=== PATIENT | female | born 1930 | race Caucasian/White ===

== ENCOUNTER → 2017-02-27 | Outpatient (CLI) | payer OTHER, MEDICARE ==
[~2017-02-27] MED LIST: ATOR-24 PO; GABA-113 PO; LEVO50TA6 PO; PANT40TA PO; TRAM-10 PO; WARF4TAB8 PO
[2017-02-27 17:35] LABS: BASO % 0.8 %; BASO ABS # 0.06 K/uL (0-0.2); COMPLETE YES; EOS % 2.1 %; HEMATOCRIT 38.7 % (37-47); IG% 0.1 %; LYMPH % 31.1 %; LYMPH ABS # 2.26 K/uL (1.2-3.4); MEAN CELL VOLUME 93.7 fL (80-100); MEAN CORPUSCULAR HEMOGLOBIN 29.8 pg (25-34); MEAN CORPUSCULAR HGB CONC 31.8 g/dl (32-36); MEAN PLATELET VOLUME 9.7 fL (7.4-10.4); MONO % 9.4 %; NEUT % 56.5 %; PLATELET COUNT 279 K/uL (130-400); RED BLOOD COUNT 4.13 M/uL (4.2-5.4); WHITE BLOOD COUNT 7.27 K/uL (4.8-10.8)
[2017-02-27 17:45] LABS: ALT/SGPT 21 U/L (12-78); AST/SGOT 24 U/L (15-37); BLOOD UREA NITROGEN 12 mg/dl (7-18); BUN/CREATININE RATIO 15.9 (10-20); CALCIUM 9.1 mg/dl (8.5-10.1); CARBON DIOXIDE 29 mmol/L (21-32); CHLORIDE 104 mmol/L (98-107); CHOLESTEROL 237 mg/dl (0-200); CREATININE 0.76 mg/dl (0.60-1.20); GLUCOSE 87 mg/dl (70-99); POTASSIUM 4.1 mmol/L (3.5-5.1); SODIUM 140 mmol/L (136-145)
[2017-02-27 18:02] LABS: ALB/GLOB RATIO 0.9 (0.9-2); ALKALINE PHOSPHATASE 101 U/L (45-117); CHOLESTEROL/HDL RATIO 4.5; HDL CHOLESTEROL 53 mg/dl; LDL CHOLESTEROL CALCULATED 162 mg/dl; TRIGLYCERIDES 111 mg/dl (0-150); VERY LOW DENSITY LIPOPROT CALC 22 mg/dl
== END | disposition home or self-care (01) ==
LOC: C.LABPBG 12:42
PROVIDERS: ATTEND Neuromusculoskeletal Medicine & OMM
DX: Z00.00 Encounter for general adult medical examination without abnormal findings (principal); E03.9 Hypothyroidism, unspecified; I10 Essential (primary) hypertension

== ENCOUNTER 2017-10-19 00:35 | Inpatient (IN) | payer OTHER, MEDICARE ==
[2017-10-19] VITALS (8 sets, daily range): BP systolic 157–166; BP diastolic 69–89; PULSE 75–108; TEMP 35.7–37.1; O2SAT 95–100; Ht 162.6 cm; Wt 54.8 kg
[~2017-10-19] VITALS: Ht 162.6 cm; Wt 54.8 kg
[2017-10-19] MEDS ORDERED: MULT-506 PO (01:34)
[2017-10-19] MEDS ORDERED: COCO1CAP PO (01:35)
[2017-10-19] MEDS ORDERED: OMEG10007 PO (01:36)
[2017-10-19] MEDS ORDERED: GLUCTAB4 PO (01:37)
[2017-10-19] MEDS ORDERED: [UNRECOGNIZED DRUG - CODE] PO (01:39)
[2017-10-19] MEDS ORDERED: CHOL1CAP57 PO (01:41)
[2017-10-19] MEDS ORDERED: ONDANSETRON INJ 2 MG/ML 2 ML VIAL IV STA (02:13)
[2017-10-19 02:14] LABS: BASO % 0.2 %; BASO ABS # 0.03 K/uL (0-0.2); EOS % 0.7 %; EOS ABS # 0.08 K/uL (0-0.5); HEMATOCRIT 37.8 % (37-47); HEMOGLOBIN 12.7 g/dL (12.0-16.0); IG# 0.03 K/uL (0.00-0.02); LYMPH % 10.7 %; LYMPH ABS # 1.29 K/uL (1.2-3.4); MEAN CELL VOLUME 89.4 fL (80-100); MEAN CORPUSCULAR HGB CONC 33.6 g/dl (32-36); MEAN PLATELET VOLUME 8.9 fL (7.4-10.4); MONO % 5.8 %; NEUT % 82.4 %; NEUT ABS # 9.92 K/uL (1.4-6.5); PLATELET COUNT 296 K/uL (130-400); RED CELL DISTRIBUTION WIDTH CV 13.9 % (11.5-14.5); RED CELL DISTRIBUTION WIDTH SD 45.5 fL (36.4-46.3); WHITE BLOOD COUNT 12.05 K/uL (4.8-10.8)
[2017-10-19] MEDS ORDERED: IMIPENEM/CILASTATIN IV 500 MG in DEXTROSE 5% 100ML 100 ML IV STA (02:20)
[2017-10-19] MEDS ORDERED: DAPTOmycin IV 400 MG in SODIUM CHLORIDE 0.9% 50ML 50 ML IV STA (02:20)
[2017-10-19 02:30] LABS: PTT PATIENT 24.3 SECONDS (21.0-31.0)
[2017-10-19 02:34] LABS: ALBUMIN 3.4 gm/dl (3.4-5.0); ALT/SGPT 23 U/L (12-78); AST/SGOT 27 U/L (15-37); BLOOD UREA NITROGEN 16 mg/dl (7-18); CALCIUM 8.5 mg/dl (8.5-10.1); CARBON DIOXIDE 23 mmol/L (21-32); GLUCOSE 169 mg/dl (70-99); POTASSIUM 3.6 mmol/L (3.5-5.1); SODIUM 139 mmol/L (136-145)
[2017-10-19 02:38] LABS: ALKALINE PHOSPHATASE 92 U/L (45-117); TOTAL PROTEIN 7.6 gm/dl (6.4-8.2)
[2017-10-19] MEDS ORDERED: SODIUM CHLORIDE 0.9% 1000ML 1,000 ML IV STA (02:47)
[2017-10-19] MEDS ORDERED: PIPERACILL/TAZOBAC CONSULT ACTIVE PRN (03:30)
[2017-10-19] MEDS ORDERED: VANCOMYCIN CONSULT ACTIVE PRN (03:30)
[2017-10-19] MEDS ORDERED: ACETAMINOPHEN 325 MG TAB PO PRN (03:30)
[2017-10-19] MEDS ORDERED: ONDANSETRON INJ 2 MG/ML 2 ML VIAL IV PRN (03:30)
[2017-10-19] MEDS ORDERED: PATIENT'S HEIGHT AND/OR WEIGHT NEEDED STA (03:58)
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
[2017-10-19] MEDS ORDERED: PIPERACILL/TAZOBAC IV 3.375 GM in DEXTROSE 5% 100ML 100 ML IV ONE (05:00)
[2017-10-19] MEDS ORDERED: VANCOMYCIN IV 1,250 MG in SODIUM CHLORIDE 0.9% 250ML 250 ML IV SCH (05:00)
[2017-10-19] MEDS: SODIUM CHLORIDE 0.9% 1000ML 1,000 ML IV SCH ×2 (05:21→15:06)
[2017-10-19] MEDS: LEVOTHYROXINE 50 MCG TAB PO SCH (06:00)
[2017-10-19] MEDS ORDERED: HALOPERIDOL LACTATE 5 MG/ML 1 ML VIAL IV STA (06:14)
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
[2017-10-19] MEDS: PANTOprazole SOD 40 MG TAB PO SCH (08:00)
[2017-10-19] MEDS: ASPIRIN 81 MG ECTAB PO SCH (08:00)
[2017-10-19] MEDS: GABAPENTIN 300 MG CAP PO SCH (08:00)
[2017-10-19] MEDS: ENOXAPARIN 40 MG/0.4 ML SYR SC SCH (08:01)
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
[2017-10-19] MEDS: PIPERACILL/TAZOBAC IV 3.375 GM in DEXTROSE 5% 100ML 100 ML IV SCH ×2 (11:31→18:06)
[2017-10-19] MEDS ORDERED: HydrALAZINE HCL 20 MG/ML VIAL IV. PRN (13:30)
--- NOTE | 2017-10-19 14:13 | Pharmacy Progress Note ---
Pharmacy Abx Dose Short Note Date of Service October 19, 2017. Assessment & Plan Assessment * 87 year old female admitted for NVD, hypoxia, lethargy and hypothermia; concern for sepsis - source uncertain, GI? * 48 hours of empiric VANCOMYCIN + ZOSYN IV have been ordered by provider * Blood cx's ordered; UA unremarkable for infxn * CXR: no acute process per read * Procalcitonin ordered, results pending * Currently sat well on room air, hypothermia resolving, no tachycardia or hypotension noted Plan Vancomycin * eCrCl ~35-40cc/min * Loading dose of 1250mg (~22mg/kg) given this AM at 0526 * Estimated half-life ~20 hours * Maintenance dose: 750mg (13.2mg/kg) IV Q 24 hours * Goal trough: 15-20mcg/mL for sepsis * If therapy extends beyond 48 hours would recommend checking trough level w/ 2nd or 3rd maint dose as accurate calculation of p'kinetic parameters in this age group can be difficult Zosyn: * eCrCl > 20cc/min; BMI < 35; continue 3.375gm ext-infusion Q 8 hours Pharmacy will continue to follow and will adjust dose/frequency as necessary. Thank you.
[2017-10-19] MEDS ORDERED: OLANZAPINE ZYDIS 5 MG ORALLY DIS. TAB PO PRN (14:45)
--- NOTE | 2017-10-19 14:46 | Progress Note ---
Subjective Date of Service: October 19, 2017. Subjective Pt evaluation today including: conversation w/ patient, conversation w/ family , physical exam, chart review, lab review, review of studies, conversation w/ operational risk consultant, review of inpatient medication list Voiding: no voiding problems Nurse reports patient is agitated mild confused, 1 2 out of bed, and try to remove the IV access, When I see her she was anxious, but conversational, only know her name not first day not place, not daughter's name Problem List Medical Problems: (1) Atrial fibrillation and flutter Status: Acute (2) Hyponatremia Status: Acute (3) Hypoxia Status: Acute (4) Sciatica associated with disorder of lumbar spine Status: Acute (5) SIRS (systemic inflammatory response syndrome) Status: Acute (6) Warfarin-induced coagulopathy Status: Acute Review of Systems Constitutional: + weakness, + fatigue, + problem reported (Is limited because patient showing mild dementia), No fever, No chills, No sweats, No weight loss Eyes: No worsening of vision, No eye pain, No redness, No discharge, No diplopia ENT: No hearing loss, No unusual epistaxis, No nasal symptoms, No sore throat, No tinnitus, No dental problems, No trouble swallowing Respiratory: No cough, No sputum, No wheezing, No shortness of breath, No dyspnea on exertion, No dyspnea at rest, No hemoptysis Cardiac: No chest pain, No orthopnea, No PND, No edema, No claudication, No palpitations Abdomen: No pain, No nausea, No vomiting, No diarrhea, No constipation Musculoskeletal: No joint pain, No muscle pain, No swelling, No calf pain Female : No dysuria, No urinary frequency, No hematuria, No incontinence, No abnormal vaginal bleeding, No vaginal discharge Neurologic: No memory loss, No paralysis, No weakness, No numbness/tingling, No vertigo, No balance problems Psychiatric: No depression symptoms, No anhedonism, No anxiety, No insomnia, No substance abuse Heme: No abnormal bleeding/bruising, No clotting problems, No swollen lymph nodes, No night sweats Endo: No fatigue, No excessive thirst, No excessive urination Skin: No rash, No itch, No new/changing skin lesions, No color change, No bleeding Objective Vital Signs Date Time Temp Pulse Resp B/P (MAP) Pulse Ox O2 Delivery O2 Flow Rate FiO2 10/19/17 11:30 Room Air 10/19/17 11:30 37.1 88 16 159/89 (112) 96 Room Air 10/19/17 10:45 37.1 10/19/17 09:00 36.1 10/19/17 08:21 36.0 75 20 164/69 (100) 100 Room Air 10/19/17 07:30 Room Air 2.0 10/19/17 04:30 35.7 75 20 160/89 10/19/17 04:30 99 Room Air 10/19/17 04:19 35.4 70 16 130/101 99 10/19/17 03:48 35.4 10/19/17 03:04 64 15 149/78 99 Nasal Cannula 2.0 10/19/17 02:20 69 14 165/94 100 Nasal Cannula 2.0 10/19/17 01:36 100 Nasal Cannula 2.0 10/19/17 01:29 100 Nasal Cannula 2.0 10/19/17 01:28 70 21 155/79 75 Room Air 10/19/17 00:48 34.4 69 16 176/62 100 Room Air Physical Exam General Appearance: WD/WN, no apparent distress, + thin Eyes: normal inspection, PERRL, EOMI, sclerae normal ENT: normal ENT inspection, hearing grossly normal, pharynx normal Neck: supple, no adenopathy, thyroid normal, no JVD, no carotid bruits, trachea midline Respiratory/Chest: chest non-tender, lungs clear, normal breath sounds, no respiratory distress, no accessory muscle use Cardiovascular: regular rate, rhythm, no edema, no gallop, no JVD, no murmur Abdomen: normal bowel sounds, non tender, soft, no organomegaly, no pulsatile mass Extremities: normal range of motion, non-tender, normal inspection, no pedal edema, no calf tenderness, normal capillary refill, pelvis stable 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, no motor/sensory deficits, alert, normal mood/affect, oriented x 3 Skin: normal color, warm/dry, no rash Lymphatic: no adenopathy Laboratory Results Last 24 Hours Test 10/19/17 01:50 10/19/17 01:55 10/19/17 01:57 10/19/17 06:09 White Blood Count 12.05 K/uL Red Blood Count 4.23 M/uL Hemoglobin 12.7 g/dL Hematocrit 37.8 % Mean Corpuscular Volume 89.4 fL Mean Corpuscular Hemoglobin 30.0 pg Mean Corpuscular Hemoglobin Concent 33.6 g/dl Platelet Count 296 K/uL Mean Platelet Volume 8.9 fL Neutrophils (%) (Auto) 82.4 % Lymphocytes (%) (Auto) 10.7 % Monocytes (%) (Auto) 5.8 % Eosinophils (%) (Auto) 0.7 % Basophils (%) (Auto) 0.2 % Neutrophils # (Auto) 9.92 K/uL Lymphocytes # (Auto) 1.29 K/uL Monocytes # (Auto) 0.70 K/uL Eosinophils # (Auto) 0.08 K/uL Basophils # (Auto) 0.03 K/uL RDW Standard Deviation 45.5 fL RDW Coefficient of Variation 13.9 % Immature Granulocyte % (Auto) 0.2 % Immature Granulocyte # (Auto) 0.03 K/uL Prothrombin Time 11.0 SECONDS Prothromb Time International Ratio 1.0 Activated Partial Thromboplast Time 24.3 SECONDS Partial Thromboplastin Ratio 0.9 Urine Color YELLOW Urine Appearance CLEAR Urine pH 6.0 Urine Specific [place] 1.016 Urine Protein NEG Urine Glucose (UA) NEG Urine Ketones 1+ Urine Occult Blood NEG Urine Nitrite NEG Urine Bilirubin NEG Urine Urobilinogen NEG Urine Leukocyte Esterase NEG Urine WBC (Auto) 1-5 /hpf Urine RBC (Auto) 0-4 /hpf Urine Hyaline Casts (Auto) 0 /lpf Urine Epithelial Cells (Auto) 0-5 /lpf Urine Bacteria (Auto) NEG Sodium Level 139 mmol/L Potassium Level 3.6 mmol/L Chloride Level 107 mmol/L Carbon Dioxide Level 23 mmol/L Anion Gap 9.0 mmol/L Blood Urea Nitrogen 16 mg/dl Creatinine 0.90 mg/dl Estimated GFR () 66.2 Estimated GFR (Non- 57.1 BUN/Creatinine Ratio 17.6 Random Glucose 169 mg/dl Calcium Level 8.5 mg/dl Phosphorus Level 3.0 mg/dl Magnesium Level 2.1 mg/dl Total Bilirubin 0.6 mg/dl Aspartate Amino Transf (AST/SGOT) 27 U/L Alanine Aminotransferase (ALT/SGPT) 23 U/L Alkaline Phosphatase 92 U/L Troponin I < 0.015 ng/ml < 0.015 ng/ml Total Protein 7.6 gm/dl Albumin 3.4 gm/dl Globulin 4.2 gm/dl Albumin/Globulin Ratio 0.8 Thyroid Stimulating Hormone (TSH) 11.700 uIu/ml Free Thyroxine 1.17 ng/dl Bedside Lactic Acid Venous 2.86 mmol/L Random Cortisol 36.79 mcg/dl Test 10/19/17 07:54 10/19/17 13:56 Lactic Acid Level 3.5 mmol/L Ammonia < 10.0 umol/L Troponin I < 0.015 ng/ml C-Reactive Protein 0.86 mg/dl Assessment and Plan 87yo female admitted on October 18, 2017 with episode of nausea/vomiting/diarrhea now with +SIRS, source unclear SIRS with mild leukocytosis, hypothermic, and mild mental status changes Mild elevated lactate at 2.86 on admission, which is increased today Generally looks better, vital signs stable no hypothermic source of infection unclear at this time. UA does not suggest infection, CXR without PNA, final read pending. Abdomen is soft with normal lfts and lipase. Blood cultures sent, will follow Continue IVF hydration, NSS at 100mL/hr x 2 liters. Continue empiric antibiotic coverage with Vancomycin and Zosyn Hypothermia, see above EKG Changes upon admission , new diffuse TWI when compared to prior EKG from 2016. Denies CP at present, Troponin x 1 negative Trend cardiac enzymes x 3 sets were all negative, -ASA 81mg daily Hypothyroid, TSH elevated at 11 however T4 1.17 which is normal GERD, Atrial fibrillation, -Rate controlled, no anticoagulation at this time. Patient with CHADS 2 Vasc score of 3, these need to further address with family Lovenox for DVT prophylaxis Patient is full code I called to daughter Jennifer, answered all questions, she wanted to be updated [phone] before discharges Continued [facility] stay due to: multiple IV medications needed Discharge planning: home
[2017-10-20] VITALS (8 sets, daily range): BP systolic 95–165; BP diastolic 80–104; PULSE 94–116; TEMP 36.6–37.2; O2SAT 93–98
[2017-10-20] MEDS: SODIUM CHLORIDE 0.9% 1000ML 1,000 ML IV SCH (00:39)
[2017-10-20] MEDS: PIPERACILL/TAZOBAC IV 3.375 GM in DEXTROSE 5% 100ML 100 ML IV SCH ×2 (02:20→14:38)
[2017-10-20] MEDS ORDERED: VANCOMYCIN IV 750 MG in SODIUM CHLORIDE 0.9% 250ML 250 ML IV SCH (05:00)
[2017-10-20] MEDS: LEVOTHYROXINE 50 MCG TAB PO SCH ×2 (05:21→08:27)
[2017-10-20 08:03] LABS: CALCIUM 7.8 mg/dl (8.5-10.1); CREATININE 1.75 mg/dl (0.60-1.20); POTASSIUM 3.8 mmol/L (3.5-5.1)
[2017-10-20 08:05] LABS: PHOSPHORUS 5.5 mg/dl (2.5-4.9)
[2017-10-20] MEDS: GABAPENTIN 300 MG CAP PO SCH (08:26)
[2017-10-20] MEDS: ASPIRIN 81 MG ECTAB PO SCH (08:27)
[2017-10-20] MEDS: PANTOprazole SOD 40 MG TAB PO SCH (08:27)
[2017-10-20] MEDS: ENOXAPARIN 40 MG/0.4 ML SYR SC SCH (08:27)
--- NOTE | 2017-10-20 12:12 | Progress Note ---
Subjective Date of Service: October 20, 2017. Subjective Pt evaluation today including: conversation w/ patient, physical exam, lab review, review of inpatient medication list Pain: denies pain PO Intake: adequate per aide had some blood in urine this morning per RN, patient herself could not tell me this she denies pain reviewed vitals, temperature is better today, HR in 90's Cr bumped to 1.75 from 0.9 despite fluids no growth on blood cultures no CBC ordered for today, WBC was 12k on admission no diarrhea since admission, no vomiting Problem List Medical Problems: (1) Atrial fibrillation and flutter Status: Acute (2) Hyponatremia Status: Acute (3) Hypoxia Status: Acute (4) Sciatica associated with disorder of lumbar spine Status: Acute (5) SIRS (systemic inflammatory response syndrome) Status: Acute (6) Warfarin-induced coagulopathy Status: Acute Review of Systems Constitutional: + weakness, + fatigue Neurologic: + memory loss, + weakness All Other Systems: Reviewed and Negative Medications Current Inpatient Medications Medications (Trade) Dose Ordered Sig/Arnold Route Start Time Stop Time Status Last Admin Dose Admin Gabapentin (Neurontin Cap) 300 mg DAILY PO 10/19/17 09:00 11/18/17 08:59 10/20/17 08:26 300 MG Levothyroxine Sodium (Synthroid Tab) 50 mcg DAILYBB PO 10/19/17 06:00 11/18/17 06:59 10/20/17 08:27 50 MCG Pantoprazole Sodium (Protonix Tab) 40 mg DAILY PO 10/19/17 09:00 11/18/17 08:59 10/20/17 08:27 40 MG Acetaminophen (Tylenol Tab) 650 mg Q4H PRN PO 10/19/17 03:30 11/18/17 03:29 10/19/17 11:52 650 MG Ondansetron HCl (Zofran Inj) 4 mg Q6H PRN IV 10/19/17 03:30 11/18/17 03:29 Miscellaneous Information (Consult) 1 ea UD PRN N/A 10/19/17 03:30 11/18/17 03:29 Miscellaneous Information (Consult) 1 ea UD PRN N/A 10/19/17 03:30 11/18/17 03:29 Aspirin (Ecotrin Tab) 81 mg QAM PO 10/19/17 09:00 11/18/17 08:59 10/20/17 08:27 81 MG Hydralazine HCl (HydrALAZINE INJ) 20 mg Q8 PRN IV. 10/19/17 13:30 11/18/17 13:29 Vancomycin HCl 750 mg/Sodium Chloride 265 ml @ 125 mls/hr Q24H IV 10/20/17 05:00 10/21/17 04:59 Future Hold 10/20/17 05:34 125 MLS/HR Olanzapine (Zyprexa Zydis Od Tab) 5 mg QD PRN PO 10/19/17 14:45 11/18/17 14:44 10/19/17 18:18 5 MG Piperacillin Sod/ Tazobactam Sod 3.375 gm/Dextrose 115 ml @ 28.75 mls/ hr Q12H IV 10/20/17 14:00 10/21/17 10:59 Enoxaparin Sodium (Lovenox Inj) 30 mg Q24H SC 10/21/17 09:00 11/18/17 08:59 Objective Vital Signs Date Time Temp Pulse Resp B/P (MAP) Pulse Ox O2 Delivery O2 Flow Rate FiO2 10/20/17 10:52 37.2 94 16 163/93 (116) 93 Room Air 10/20/17 08:00 Room Air 10/20/17 07:24 103 15 150/93 (112) 95 Room Air 10/20/17 04:03 36.6 94 16 165/104 (124) 95 Room Air 10/20/17 04:00 Room Air 10/20/17 00:00 Room Air 10/19/17 23:25 36.3 86 16 166/76 (106) 97 Room Air 10/19/17 20:00 Room Air 10/19/17 19:27 37.1 108 16 160/89 (112) 95 Room Air 10/19/17 15:14 Room Air 10/19/17 15:09 36.9 89 18 157/78 (104) 99 Room Air Physical Exam General Appearance: no apparent distress, + thin Eyes: normal inspection, EOMI, sclerae normal ENT: normal ENT inspection, hearing grossly normal, pharynx normal Neck: supple, no adenopathy, no JVD, trachea midline Respiratory/Chest: chest non-tender, lungs clear, normal breath sounds, no respiratory distress, no accessory muscle use Cardiovascular: regular rate, rhythm, no edema, no gallop, no JVD, no murmur Abdomen: normal bowel sounds, non tender, soft, no organomegaly Extremities: normal range of motion, non-tender, normal inspection, no pedal edema, no calf tenderness, pelvis stable 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, alert, normal mood/affect, + motor weakness (generalized) Laboratory Results Last 24 Hours Test 10/19/17 13:56 10/19/17 21:59 10/20/17 07:09 Erythrocyte Sedimentation Rate 44 mm/hr Ammonia < 10.0 umol/L Troponin I < 0.015 ng/ml < 0.015 ng/ml C-Reactive Protein 0.86 mg/dl Procalcitonin 0.09 ng/ml Sodium Level 136 mmol/L Potassium Level 3.8 mmol/L Chloride Level 106 mmol/L Carbon Dioxide Level 20 mmol/L Anion Gap 10.0 mmol/L Blood Urea Nitrogen 16 mg/dl Creatinine 1.75 mg/dl Est Creatinine Clear Calc Drug Dose 19.2 ml/min Estimated GFR () 29.6 Estimated GFR (Non- 25.6 BUN/Creatinine Ratio 9.0 Random Glucose 120 mg/dl Calcium Level 7.8 mg/dl Phosphorus Level 5.5 mg/dl Magnesium Level 1.9 mg/dl Assessment and Plan 87yo female admitted on October 18, 2017 with episode of nausea/vomiting/diarrhea now with +SIRS, source unclear - Acute kidney injury Cr bumped to 1.75 from 0.9 despite receiving IV fluids will add back NSS at 80cc/hr, follow UO no nephrotoxic medications, dose Vanco and Zosyn accordingly repeat BMP tomorrow AM K low normal at 3.8, add 20mEq to fluids - SIRS prior to arrival, leukocytosis of 12k, hypothermia, altered mental status temperature improved, mental status improving no clear source of infection, CXR clear, UA clear, no abdominal pain had reported diarrhea prior to arrival, none since admission would check C diff if she has diarrhea but doubtful at this time try to repeat UA with reported hematuria this AM follow up blood cultures continue Vancomycin and Zosyn for today, reassess tomorrow - EKG Changes upon admission , new diffuse TWI when compared to prior EKG from 2016 never had chest pressure, troponin negative x 3 sets continue aspirin - Hypothyroid, TSH elevated at 11 however T4 1.17 which is normal can follow up outpatient GERD, Atrial fibrillation, -Rate controlled, no anticoagulation at this time. Patient with CHADS 2 Vasc score of 3 Lovenox for DVT prophylaxis Patient is full code keep on tele for today, check labs in the AM, PT/OT evaluations Continued [facility] stay due to: multiple IV medications needed Discharge planning: home
[2017-10-20] MEDS: NSS + 20MEQ KCL 1000ML 1,000 ML IV SCH (12:46)
--- NOTE | 2017-10-20 13:48 | Clinical Documentation Query ---
QUERY 1 OF [address] MENCHACA, In your clinical opinion is this patient being managed for: ( ) Gastroenteritis ( x ) Not Agree ( ) Other explanation of clinical findings (No explanation is considered a No Response) ( ) Unable to determine ( ) Need to Discuss (Phone CDS or qliq) (No discussion is considered a No Response) The medical record reflects the following clinical findings, treatment, and risk factors. Clinical Indicators: 87 yo female presenting with vomiting and diarrhea and SIRS. WBC 12.05, T 34.4 Treatment: IV daptomycin, IV imipenem, IV vancomcyin, IV zosyn, stool for C diff pending, IV fluids Risk Factors: age, possible community exposure (reportedly out to eat with family prior to presentation to ER) QUERY 2 OF 2 In your clinical opinion is this patient being managed for: ( x ) Metabolic encephalopathy ( ) Not Agree ( ) Other explanation of clinical findings (No explanation is considered a No Response) ( ) Unable to determine ( ) Need to Discuss (Phone CDS or qliq) (No discussion is considered a No Response) The medical record reflects the following clinical findings, treatment, and risk factors. Clinical Indicators: Per documentation, pt very confused, "worse than she has ever been" per daughter noted in Mammal Keeper note. Reportedly with dementia however still independent. Nurisng progress note indicates pt becoming more awake and eventually knew name and place. Treatment: IV fluids, david hugger, IV daptomycin, IV imipenem, IV fluids, IV vancomycin, IV zosyn Risk Factors:age, preexisting dementia, SIRs, possible GE, Please clarify and document your clinical opinion in the progress notes and discharge summary. Terms such as "probable", "suspected", "likely", "questionable", "possible", or "still to be ruled out" are acceptable. IF IN AGREEMENT, YOU MUST DOCUMENT ABOVE DIAGNOSTIC STATEMENT IN DAILY PROGRESS NOTES AND DISCHARGE SUMMARY. This document is not part of the patient's record. Thank You, Britni Frost, RN [phone]
[2017-10-21] VITALS (8 sets, daily range): BP systolic 129–147; BP diastolic 79–92; PULSE 90–101; TEMP 36.4–36.7; O2SAT 94–98
[2017-10-21] MEDS: NSS + 20MEQ KCL 1000ML 1,000 ML IV SCH (01:28)
[2017-10-21] MEDS: PIPERACILL/TAZOBAC IV 3.375 GM in DEXTROSE 5% 100ML 100 ML IV SCH ×2 (01:28→13:49)
[2017-10-21] MEDS: LEVOTHYROXINE 50 MCG TAB PO SCH (05:22)
[2017-10-21 07:37] LABS: BASO % 0.3 %; BASO ABS # 0.04 K/uL (0-0.2); EOS % 2.6 %; HEMATOCRIT 36.3 % (37-47); HEMOGLOBIN 11.8 g/dL (12.0-16.0); IG# 0.02 K/uL (0.00-0.02); LYMPH % 10.9 %; LYMPH ABS # 1.26 K/uL (1.2-3.4); MEAN CELL VOLUME 90.8 fL (80-100); MEAN CORPUSCULAR HEMOGLOBIN 29.5 pg (25-34); MEAN CORPUSCULAR HGB CONC 32.5 g/dl (32-36); MEAN PLATELET VOLUME 8.9 fL (7.4-10.4); MONO % 11.1 %; MONO ABS # 1.29 K/uL (0.11-0.59); NEUT % 74.9 %; PLATELET COUNT 228 K/uL (130-400); RED CELL DISTRIBUTION WIDTH CV 14.5 % (11.5-14.5); RED CELL DISTRIBUTION WIDTH SD 48.5 fL (36.4-46.3); WHITE BLOOD COUNT 11.61 K/uL (4.8-10.8)
[2017-10-21] MEDS: ASPIRIN 81 MG ECTAB PO SCH (07:54)
[2017-10-21] MEDS: PANTOprazole SOD 40 MG TAB PO SCH (07:54)
[2017-10-21] MEDS: GABAPENTIN 300 MG CAP PO SCH (07:54)
[2017-10-21 08:04] LABS: CALCIUM 7.6 mg/dl (8.5-10.1); CREATININE 2.85 mg/dl (0.60-1.20)
[2017-10-21] MEDS ORDERED: ENOXAPARIN 30 MG/0.3 ML SYR SC SCH (09:00)
--- NOTE | 2017-10-21 12:27 | Progress Note ---
Subjective Date of Service: October 21, 2017. Subjective Pt evaluation today including: conversation w/ patient, physical exam, lab review, review of inpatient medication list Pain: denies pain PO Intake: adequate Voiding: requires PRN straight cath patient had some more hematuria in the morning and last night early this AM she had a bladder scan, bladder full, drained 1200cc via straight catheter patient more alert today, in chair, eating better reviewed labs, WBC 11k, Cr rising to 2.8 from 1.75, not responding to fluids will transfer to medical floor discussed with CM, patient was living at home alone, definitely will need subacute rehab Problem List Medical Problems: (1) Atrial fibrillation and flutter Status: Acute (2) Hyponatremia Status: Acute (3) Hypoxia Status: Acute (4) Sciatica associated with disorder of lumbar spine Status: Acute (5) SIRS (systemic inflammatory response syndrome) Status: Acute (6) Warfarin-induced coagulopathy Status: Acute Review of Systems All Other Systems: Reviewed and Negative Medications Current Inpatient Medications Medications (Trade) Dose Ordered Sig/Arnold Route Start Time Stop Time Status Last Admin Dose Admin Gabapentin (Neurontin Cap) 300 mg DAILY PO 10/19/17 09:00 11/18/17 08:59 10/21/17 07:54 300 MG Levothyroxine Sodium (Synthroid Tab) 50 mcg DAILYBB PO 10/19/17 06:00 11/18/17 06:59 10/21/17 05:22 50 MCG Pantoprazole Sodium (Protonix Tab) 40 mg DAILY PO 10/19/17 09:00 11/18/17 08:59 10/21/17 07:54 40 MG Acetaminophen (Tylenol Tab) 650 mg Q4H PRN PO 10/19/17 03:30 11/18/17 03:29 10/19/17 11:52 650 MG Ondansetron HCl (Zofran Inj) 4 mg Q6H PRN IV 10/19/17 03:30 11/18/17 03:29 Miscellaneous Information (Consult) 1 ea UD PRN N/A 10/19/17 03:30 11/18/17 03:29 Miscellaneous Information (Consult) 1 ea UD PRN N/A 10/19/17 03:30 11/18/17 03:29 Aspirin (Ecotrin Tab) 81 mg QAM PO 10/19/17 09:00 11/18/17 08:59 10/21/17 07:54 81 MG Hydralazine HCl (HydrALAZINE INJ) 20 mg Q8 PRN IV. 10/19/17 13:30 11/18/17 13:29 Olanzapine (Zyprexa Zydis Od Tab) 5 mg QD PRN PO 10/19/17 14:45 11/18/17 14:44 10/19/17 18:18 5 MG Objective Vital Signs Date Time Temp Pulse Resp B/P (MAP) Pulse Ox O2 Delivery O2 Flow Rate FiO2 10/21/17 12:00 36.6 101 18 97 2.0 10/21/17 11:15 36.6 101 18 147/79 (101) 97 Room Air 10/21/17 08:00 Room Air 10/21/17 07:56 36.4 101 20 133/92 (106) 97 Room Air 10/21/17 04:46 36.7 90 16 134/83 (100) 94 Room Air 10/21/17 04:00 Room Air 10/21/17 00:00 Room Air 10/20/17 23:49 36.7 105 16 158/95 (116) 98 Room Air 10/20/17 20:00 95 Room Air 10/20/17 19:33 36.6 106 22 95/80 (85) 95 Room Air 10/20/17 16:00 98 Room Air 10/20/17 15:14 37.1 116 20 164/80 (108) 98 Room Air Physical Exam General Appearance: WD/WN, no apparent distress Eyes: normal inspection, EOMI, sclerae normal ENT: normal ENT inspection, hearing grossly normal, pharynx normal Neck: supple, no adenopathy, no JVD, trachea midline Respiratory/Chest: chest non-tender, lungs clear, normal breath sounds, no respiratory distress, no accessory muscle use Cardiovascular: regular rate, rhythm, no edema, no gallop, no JVD, no murmur Abdomen: normal bowel sounds, non tender, soft, no organomegaly Extremities: normal range of motion, non-tender, normal inspection, no pedal edema, no calf tenderness, pelvis stable 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, alert, normal mood/affect, + motor weakness (generalized), + disoriented (only oriented to self) Skin: normal color, warm/dry, no rash Laboratory Results Last 24 Hours Test 10/20/17 14:00 10/21/17 07:01 Urine Color RED Urine Appearance CLOUDY Urine pH 7.0 Urine Specific [place] 1.015 Urine Protein 1+ Urine Glucose (UA) NEG Urine Ketones TRACE Urine Occult Blood 3+ Urine Nitrite NEG Urine Bilirubin NEG Urine Urobilinogen NEG Urine Leukocyte Esterase TRACE Urine RBC >30 /hpf Urine WBC >30 /hpf Urine Epithelial Cells 5-10 /lpf Urine Bacteria NEG White Blood Count 11.61 K/uL Red Blood Count 4.00 M/uL Hemoglobin 11.8 g/dL Hematocrit 36.3 % Mean Corpuscular Volume 90.8 fL Mean Corpuscular Hemoglobin 29.5 pg Mean Corpuscular Hemoglobin Concent 32.5 g/dl Platelet Count 228 K/uL Mean Platelet Volume 8.9 fL Neutrophils (%) (Auto) 74.9 % Lymphocytes (%) (Auto) 10.9 % Monocytes (%) (Auto) 11.1 % Eosinophils (%) (Auto) 2.6 % Basophils (%) (Auto) 0.3 % Neutrophils # (Auto) 8.70 K/uL Lymphocytes # (Auto) 1.26 K/uL Monocytes # (Auto) 1.29 K/uL Eosinophils # (Auto) 0.30 K/uL Basophils # (Auto) 0.04 K/uL RDW Standard Deviation 48.5 fL RDW Coefficient of Variation 14.5 % Immature Granulocyte % (Auto) 0.2 % Immature Granulocyte # (Auto) 0.02 K/uL Sodium Level 140 mmol/L Potassium Level 4.0 mmol/L Chloride Level 112 mmol/L Carbon Dioxide Level 20 mmol/L Anion Gap 9.0 mmol/L Blood Urea Nitrogen 24 mg/dl Creatinine 2.85 mg/dl Est Creatinine Clear Calc Drug Dose 11.8 ml/min Estimated GFR () 16.4 Estimated GFR (Non- 14.2 BUN/Creatinine Ratio 8.5 Random Glucose 96 mg/dl Calcium Level 7.6 mg/dl Magnesium Level 1.9 mg/dl Assessment and Plan 87yo female admitted on October 18, 2017 with episode of nausea/vomiting/diarrhea now with +SIRS, source unclear - Acute kidney injury Cr continues to rise to 2.8 from 1.7 despite fluids, suggests possible ATN stop fluids today also, could be a degree of post-obstructive failure with urinary retention no nephrotoxic medications K is normal - SIRS prior to arrival, leukocytosis of 12k, hypothermia, altered mental status , suspect cystitis has hematuria, repeat UA showed > 30WBC urine culture with < 1000 colonies but this was after antibiotics temperature improved, mental status improving continue Zosyn, can d/c Vanoc - Hematuria, urinary retention: drained 1200cc from bladder this AM frequent hematuria, could be cystitis? will consult urology due to the retention order straight cath q shift for now and PRN for post void residual >350cc stop Lovenox due to bleeding - Metabolic encephalopathy: improving, likely due to cystis as well as urinary retention, Acute kidney injury - EKG Changes upon admission , new diffuse TWI when compared to prior EKG from 2016 never had chest pressure, troponin negative x 3 sets continue aspirin - Hypothyroid, TSH elevated at 11 however T4 1.17 which is normal can follow up outpatient GERD, Atrial fibrillation, -Rate controlled, no anticoagulation at this time. Patient with CHADS 2 Vasc score of 3 Patient is full code transfer to medical, PT/OT evaluations, anticipate her needed SNF rehab Continued [facility] stay due to: multiple IV medications needed Discharge planning: home
[2017-10-21 14:38] LABS: CALCIUM 8.2 mg/dl (8.5-10.1); CREATININE 1.7 mg/dl (0.60-1.20); POTASSIUM 3.9 mmol/L (3.5-5.1)
--- NOTE | 2017-10-21 15:10 | Urology Consultation ---
History General Date of Service: October 21, 2017. Primary Care Physician: Jessica Zamorano, DO Pt seen a urologist before?: No History of Present Illness 87-year-old female admitted with nausea, vomiting, fatigue Had an episode requiring intermittent catheterization yesterday, and her for spontaneous void after the catheter, she showed evidence of gross hematuria She denies any current dysuria Subsequent voiding has been clear She has not required repeat catheterization She denies any symptoms prior to catheterization Never experienced gross hematuria in the past UA prior to catheterization showed no blood, but post catheterization had microscopic blood and grossly was described as being red She reports she feels extremely well right now Normal bowel movements, no diarrhea present No nausea or vomiting Laboratory Labs were reviewed and are within normal limits unless listed below. Labs are available in the chart and at [facility] Problem List Medical Problems: (1) Atrial fibrillation and flutter Status: Acute (2) Hyponatremia Status: Acute (3) Hypoxia Status: Acute (4) Sciatica associated with disorder of lumbar spine Status: Acute (5) SIRS (systemic inflammatory response syndrome) Status: Acute (6) Warfarin-induced coagulopathy Status: Acute Past History A Fib, dementia, high cholesterol, hypertension Past Surgical History: cholecystectomy, hysterectomy Family History Patient reports no known family medical history. Social History Hx Tobacco Use In Past Year?: No Marital status: Housing status: lives alone Occupation status: retired Allergies Coded Allergies: Corticosteroids (Verified Allergy, Unknown, Unknown, 10/19/17) Medications Home Medications: Home Meds and Scripts Medications Dose Route/Sig Max Daily Dose Days Date Category Vitamin D3 (Cholecalciferol) 1,000 Unit Cap 1,000 Units PO DAILY 10/19/17 Reported Mental Clarity (Homeopathic Products) 1 Oil Oil 3 Cap PO DAILY 10/19/17 Reported Glucosamine Msm Complex (Eyebtimlhsk-Mpd-Zkx C-Manganes) 1 Tab Tab 1 Tab PO DAILY 10/19/17 Reported [place]-3 (Fish Oil) 1 Ea Cap 1,200 Mg PO DAILY 10/19/17 Reported Coconut Oil Organic (Coconut Oil) 1,000 Mg Cap 2,000 Mg PO DAILY 10/19/17 Reported Multivitamin (Multivitamins) Tab 1 Tab PO DAILY 10/19/17 Reported Neurontin (Gabapentin) 300 Mg Cap 300 Mg PO DAILY 12/05/15 Reported Levothyroxine Sodium 50 Mcg Tab 50 Mcg PO DAILY 12/05/15 Reported Protonix (Pantoprazole Sodium) 40 Mg Tab 40 Mg PO DAILY 12/05/15 Reported Inpatient Medications: Current Inpatient Medications Medications (Trade) Dose Ordered Sig/Arnold Route Start Time Stop Time Status Last Admin Dose Admin Gabapentin (Neurontin Cap) 300 mg DAILY PO 10/19/17 09:00 11/18/17 08:59 10/21/17 07:54 300 MG Levothyroxine Sodium (Synthroid Tab) 50 mcg DAILYBB PO 10/19/17 06:00 11/18/17 06:59 10/21/17 05:22 50 MCG Pantoprazole Sodium (Protonix Tab) 40 mg DAILY PO 10/19/17 09:00 11/18/17 08:59 10/21/17 07:54 40 MG Acetaminophen (Tylenol Tab) 650 mg Q4H PRN PO 10/19/17 03:30 11/18/17 03:29 10/19/17 11:52 650 MG Ondansetron HCl (Zofran Inj) 4 mg Q6H PRN IV 10/19/17 03:30 11/18/17 03:29 Miscellaneous Information (Consult) 1 ea UD PRN N/A 10/19/17 03:30 11/18/17 03:29 Aspirin (Ecotrin Tab) 81 mg QAM PO 10/19/17 09:00 11/18/17 08:59 10/21/17 07:54 81 MG Hydralazine HCl (HydrALAZINE INJ) 20 mg Q8 PRN IV. 10/19/17 13:30 11/18/17 13:29 Olanzapine (Zyprexa Zydis Od Tab) 5 mg QD PRN PO 10/19/17 14:45 11/18/17 14:44 10/19/17 18:18 5 MG Piperacillin Sod/ Tazobactam Sod 3.375 gm/Dextrose 115 ml @ 28.75 mls/ hr Q12H IV 10/21/17 14:00 10/26/17 13:59 10/21/17 13:49 28.75 MLS/HR Review of Systems Review of Systems Constitutional: No see HPI, No fever, No chills, No frequent headaches, No weight loss, No problem reported Eyes: No see HPI, No blurred vision, No double vision, No eye pain, No loss of night vision, No problem reported Neurological: No see HPI, No dizzy, No passing out, No numbness/tingling, No seizures, No problem reported Endocrine: No see HPI, No excessive thirst, No too hot, No too cold, No tired/ sluggish, No problem reported Gastrointestinal: No abdominal pain Cardiovascular: No see HPI, No heart murmur, No chest pain, No angina, No irregular heartbeat, No palpitations, No swelling ankles/feet, No problem reported Respiratory: No see HPI, No shortness of breath, No wheezing, No coughing up blood, No chronic cough, No problem reported Skin: No see HPI, No rash, No boils, No dry skin, No problem reported Musculoskeletal: No see HPI, No joint pain, No neck pain, No back pain, No arthritis, No problem reported Blood / Lymphatic: No see HPI, No bleed easily, No bruise easily, No swollen glands, No problem reported Ears / Nose / Throat: No see HPI, No hearing loss, No sinus, No hoarse voice, No sore throat, No problem reported Psychologic / Mental: No see HPI, No nervous, No trouble remembering, No difficulty sleeping, No problem reported Female : + blood in urine All Other Systems: Reviewed and Negative Physical Exam Vital Signs: Vital Signs Past 12 Hours Date Time Temp Pulse Resp B/P (MAP) Pulse Ox O2 Delivery O2 Flow Rate FiO2 10/21/17 13:04 97 Room Air 2.0 10/21/17 12:57 36.6 101 18 97 2.0 10/21/17 12:00 36.6 101 18 97 2.0 10/21/17 11:15 36.6 101 18 147/79 (101) 97 Room Air 10/21/17 08:00 Room Air 10/21/17 07:56 36.4 101 20 133/92 (106) 97 Room Air 10/21/17 04:46 36.7 90 16 134/83 (100) 94 Room Air 10/21/17 04:00 Room Air Physical Exam: General Appearance: WD/WN, no apparent distress Eyes: bilateral eyes normal inspection ENT: hearing grossly normal Neck: supple, no adenopathy Respiratory/Chest: no respiratory distress, no accessory muscle use Cardiovascular: no edema Gastrointestinal: Abdomen: normal abdomen Bladder: normal bladder Renal: normal renal Extremities: no pedal edema, no calf tenderness Neurologic/Psychiatric: alert, normal mood/affect Skin: warm/dry Lymphatic: no adenopathy Assessment & Plan Assessment & Plan Very pleasant 87-year-old female with a single episode of gross hematuria after catheterization Overall, I favor simple observation without intervention or further evaluation at this time Given the single recurrence, immediately after a catheter was passed, I suspect this was simply related to minor trauma from the catheter She has a recurrence after discharge, I would put her through full hematuria workup, otherwise I would plan for simple observation
[2017-10-22] MEDS: PIPERACILL/TAZOBAC IV 3.375 GM in DEXTROSE 5% 100ML 100 ML IV SCH (03:26)
[2017-10-22] MEDS: LEVOTHYROXINE 50 MCG TAB PO SCH (05:55)
[2017-10-22 07:16] VITALS: BP 133/77; PULSE 86; TEMP 36.4; O2SAT 96
--- NOTE | 2017-10-22 08:13 | Progress Note ---
Subjective Date of Service: October 22, 2017. Subjective Pt evaluation today including: conversation w/ patient, physical exam Voiding: no voiding problems Pt denies any further hematuria or voiding dysfunction overnight - anxious to go home Problem List Medical Problems: (1) Atrial fibrillation and flutter Status: Acute (2) Hyponatremia Status: Acute (3) Hypoxia Status: Acute (4) Sciatica associated with disorder of lumbar spine Status: Acute (5) SIRS (systemic inflammatory response syndrome) Status: Acute (6) Warfarin-induced coagulopathy Status: Acute Review of Systems Constitutional: No see HPI, No fever, No chills, No sweats, No weight loss, No weakness, No fatigue, No problem reported Female : No see HPI, No dysuria, No urinary frequency, No hematuria, No incontinence, No abnormal vaginal bleeding, No vaginal discharge, No problem reported Objective Vital Signs Date Time Temp Pulse Resp B/P (MAP) Pulse Ox O2 Delivery O2 Flow Rate FiO2 10/22/17 07:16 36.4 86 20 133/77 (95) 96 Room Air 10/22/17 00:00 Room Air 10/21/17 23:22 36.5 91 20 129/84 (99) 98 Room Air 10/21/17 16:00 97 Room Air 10/21/17 13:04 97 Room Air 2.0 10/21/17 12:57 36.6 101 18 97 2.0 10/21/17 12:00 36.6 101 18 97 2.0 10/21/17 11:15 36.6 101 18 147/79 (101) 97 Room Air Physical Exam General Appearance: no apparent distress ENT: hearing grossly normal Neck: no adenopathy Respiratory/Chest: no respiratory distress, no accessory muscle use Cardiovascular: no edema Abdomen: non tender, soft Extremities: no pedal edema, no calf tenderness Neurologic/Psychiatric: alert, normal mood/affect Laboratory Results Last 24 Hours Test 10/21/17 14:02 Sodium Level 141 mmol/L Potassium Level 3.9 mmol/L Chloride Level 112 mmol/L Carbon Dioxide Level 22 mmol/L Anion Gap 8.0 mmol/L Blood Urea Nitrogen 21 mg/dl Creatinine 1.70 mg/dl Est Creatinine Clear Calc Drug Dose 19.8 ml/min Estimated GFR () 30.7 Estimated GFR (Non- 26.5 BUN/Creatinine Ratio 12.4 Random Glucose 105 mg/dl Calcium Level 8.2 mg/dl Assessment and Plan Hematuria x 1 after CIC - no further hematuria - no further w/u indicated - call if further issues Continued [facility] stay due to: multiple IV medications needed Discharge planning: home
[2017-10-22] MEDS: ASPIRIN 81 MG ECTAB PO SCH (08:18)
[2017-10-22] MEDS: GABAPENTIN 300 MG CAP PO SCH (08:18)
[2017-10-22] MEDS: PANTOprazole SOD 40 MG TAB PO SCH (08:18)
[2017-10-22 08:50] VITALS: O2SAT 96
[2017-10-22 09:09] LABS: BASO % 0.6 %; BASO ABS # 0.06 K/uL (0-0.2); EOS % 2.8 %; EOS ABS # 0.29 K/uL (0-0.5); HEMATOCRIT 35.7 % (37-47); HEMOGLOBIN 11.8 g/dL (12.0-16.0); IG# 0.02 K/uL (0.00-0.02); LYMPH % 17.7 %; LYMPH ABS # 1.84 K/uL (1.2-3.4); MEAN CORPUSCULAR HEMOGLOBIN 29.4 pg (25-34); MEAN CORPUSCULAR HGB CONC 33.1 g/dl (32-36); MEAN PLATELET VOLUME 8.6 fL (7.4-10.4); MONO % 10.8 %; MONO ABS # 1.12 K/uL (0.11-0.59); NEUT % 67.9 %; NEUT ABS # 7.05 K/uL (1.4-6.5); PLATELET COUNT 211 K/uL (130-400); RED CELL DISTRIBUTION WIDTH CV 14.1 % (11.5-14.5); RED CELL DISTRIBUTION WIDTH SD 46.4 fL (36.4-46.3); WHITE BLOOD COUNT 10.38 K/uL (4.8-10.8)
[2017-10-22 09:45] LABS: CALCIUM 8.4 mg/dl (8.5-10.1); CREATININE 0.9 mg/dl (0.60-1.20); POTASSIUM 3.9 mmol/L (3.5-5.1)
[2017-10-22] MEDS ORDERED: PIPERACILL/TAZOBAC IV 3.375 GM in DEXTROSE 5% 100ML 100 ML IV SCH (12:00)
[2017-10-22 15:06] VITALS: BP_SYST 150; BP_SYST 164; BP_DIAS 83; BP_DIAS 90; PULSE 89; TEMP 36.9; O2SAT 96
--- NOTE | 2017-10-22 15:14 | Progress Note ---
Subjective Date of Service: October 22, 2017. Subjective Pt evaluation today including: conversation w/ patient, conversation w/ family , physical exam, lab review, conversation w/ lean consultant, review of inpatient medication list Pain: no pain PO Intake: adequate Voiding: requires PRN straight cath talked with RN, patient required a straight cath for 900cc again this morning no further reported hematuria talked with Dr. Villavicencio, he would recommend PRN straight cath going forward, hopes this is transient talked with patient's daughter, initially wanted patient to come home, however, could not do straight cath at home, agress to [facility] discussed with [facility], can take patient tomorrow reviewed labs, Cr down to 0.9 today Problem List Medical Problems: (1) Atrial fibrillation and flutter Status: Acute (2) Hyponatremia Status: Acute (3) Hypoxia Status: Acute (4) Sciatica associated with disorder of lumbar spine Status: Acute (5) SIRS (systemic inflammatory response syndrome) Status: Acute (6) Warfarin-induced coagulopathy Status: Acute Review of Systems pleasantly confused with dementia, does not admit to anything, says she is urinating fine even though she had 900cc in her bladder Medications Current Inpatient Medications Medications (Trade) Dose Ordered Sig/Arnold Route Start Time Stop Time Status Last Admin Dose Admin Gabapentin (Neurontin Cap) 300 mg DAILY PO 10/19/17 09:00 11/18/17 08:59 10/22/17 08:18 300 MG Levothyroxine Sodium (Synthroid Tab) 50 mcg DAILYBB PO 10/19/17 06:00 11/18/17 06:59 10/22/17 05:55 50 MCG Pantoprazole Sodium (Protonix Tab) 40 mg DAILY PO 10/19/17 09:00 11/18/17 08:59 10/22/17 08:18 40 MG Acetaminophen (Tylenol Tab) 650 mg Q4H PRN PO 10/19/17 03:30 11/18/17 03:29 10/19/17 11:52 650 MG Ondansetron HCl (Zofran Inj) 4 mg Q6H PRN IV 10/19/17 03:30 11/18/17 03:29 Miscellaneous Information (Consult) 1 ea UD PRN N/A 10/19/17 03:30 11/18/17 03:29 Aspirin (Ecotrin Tab) 81 mg QAM PO 10/19/17 09:00 11/18/17 08:59 10/22/17 08:18 81 MG Hydralazine HCl (HydrALAZINE INJ) 20 mg Q8 PRN IV. 10/19/17 13:30 11/18/17 13:29 Olanzapine (Zyprexa Zydis Od Tab) 5 mg QD PRN PO 10/19/17 14:45 11/18/17 14:44 10/19/17 18:18 5 MG Piperacillin Sod/ Tazobactam Sod 3.375 gm/Dextrose 115 ml @ 28.75 mls/ hr Q8H IV 10/22/17 12:00 10/26/17 11:59 10/22/17 11:50 28.75 MLS/HR Objective Vital Signs Date Time Temp Pulse Resp B/P (MAP) Pulse Ox O2 Delivery O2 Flow Rate FiO2 10/22/17 08:50 96 Room Air 10/22/17 07:16 36.4 86 20 133/77 (95) 96 Room Air 10/22/17 00:00 Room Air 10/21/17 23:22 36.5 91 20 129/84 (99) 98 Room Air 10/21/17 16:00 97 Room Air Physical Exam General Appearance: WD/WN, no apparent distress Eyes: normal inspection, EOMI, sclerae normal ENT: normal ENT inspection, hearing grossly normal, pharynx normal Neck: supple, no adenopathy, no JVD, trachea midline Respiratory/Chest: chest non-tender, lungs clear, normal breath sounds, no respiratory distress, no accessory muscle use Cardiovascular: regular rate, rhythm, no edema, no gallop, no JVD, no murmur Abdomen: normal bowel sounds, non tender, soft, no organomegaly Extremities: normal range of motion, non-tender, normal inspection, no pedal edema, no calf tenderness, pelvis stable Neurologic/Psychiatric: 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 professional II-XII 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 as tested, no motor/sensory deficits, alert, normal mood/affect, + disoriented Skin: normal color, warm/dry, no rash Laboratory Results Last 24 Hours Test 10/22/17 08:57 White Blood Count 10.38 K/uL Red Blood Count 4.01 M/uL Hemoglobin 11.8 g/dL Hematocrit 35.7 % Mean Corpuscular Volume 89.0 fL Mean Corpuscular Hemoglobin 29.4 pg Mean Corpuscular Hemoglobin Concent 33.1 g/dl Platelet Count 211 K/uL Mean Platelet Volume 8.6 fL Neutrophils (%) (Auto) 67.9 % Lymphocytes (%) (Auto) 17.7 % Monocytes (%) (Auto) 10.8 % Eosinophils (%) (Auto) 2.8 % Basophils (%) (Auto) 0.6 % Neutrophils # (Auto) 7.05 K/uL Lymphocytes # (Auto) 1.84 K/uL Monocytes # (Auto) 1.12 K/uL Eosinophils # (Auto) 0.29 K/uL Basophils # (Auto) 0.06 K/uL RDW Standard Deviation 46.4 fL RDW Coefficient of Variation 14.1 % Immature Granulocyte % (Auto) 0.2 % Immature Granulocyte # (Auto) 0.02 K/uL Sodium Level 139 mmol/L Potassium Level 3.9 mmol/L Chloride Level 110 mmol/L Carbon Dioxide Level 23 mmol/L Anion Gap 6.0 mmol/L Blood Urea Nitrogen 14 mg/dl Creatinine 0.90 mg/dl Est Creatinine Clear Calc Drug Dose 37.3 ml/min Estimated GFR () 66.2 Estimated GFR (Non- 57.1 BUN/Creatinine Ratio 15.0 Random Glucose 118 mg/dl Calcium Level 8.4 mg/dl Assessment and Plan 87yo female admitted on October 18, 2017 with episode of nausea/vomiting/diarrhea now with +SIRS, source unclear initially, now appears to have UTI - Acute kidney injury Cr improved to 0.9 today, acute injury resolved likely combination of prerenal and urinary retention no nephrotoxic medications K is normal - Sepsis due to UTI - SIRS prior to arrival, leukocytosis of 12k, hypothermia, altered mental status has hematuria, repeat UA showed > 30WBC urine culture with < 1000 colonies but this was after antibiotics, eventually grew Yeast temperature improved, mental status back to baseline change to Diflucan and Keflex, complete 7 days total for both antifungal and antibiotics - Hematuria, urinary retention: drained 1200cc from bladder in AM on 10/21, then 900cc on 10/22 frequent hematuria, could be cystitis? discussed with urology, recommend continuing PRN straight cath at rehab - Metabolic encephalopathy: resolved, likely due to cystis as well as urinary retention, Acute kidney injury - Dementia, mild: baseline confusion, lives alone with son across the street - EKG Changes upon admission , new diffuse TWI when compared to prior EKG from 2016 never had chest pressure, troponin negative x 3 sets continue aspirin - Hypothyroid, TSH elevated at 11 however T4 1.17 which is normal can follow up outpatient GERD, Atrial fibrillation, -Rate controlled, no anticoagulation at this time. Patient with CHADS 2 Vasc score of 3 Patient is full code plan for [facility] tomorrow Continued [facility] stay due to: multiple IV medications needed Discharge planning: home
[2017-10-22] MEDS: FLUCONAZOLE 100 MG TAB PO SCH (16:50)
[2017-10-22] MEDS: CEPHALEXIN MONOHYDRATE 500 MG CAP PO SCH (19:06)
[2017-10-22 23:28] VITALS: BP 126/84; PULSE 87; TEMP 36.9; O2SAT 97
[2017-10-23] MEDS: LEVOTHYROXINE 50 MCG TAB PO SCH ×2 (06:30→08:20)
[2017-10-23 06:50] VITALS: BP 163/90; PULSE 95; TEMP 36.5; O2SAT 97
[2017-10-23] MEDS ORDERED: DFL100 PO (07:36)
[2017-10-23] MEDS ORDERED: KFL500 PO (07:36)
--- NOTE | 2017-10-23 07:46 | Discharge Instructions ---
Discharge Instructions Date of Service October 23, 2017. Admission Reason for Admission: Sepsis Discharge Discharge Diagnosis / Problem: UTI with sepsis, Cassidy UTI, urinary retention , acute kidney injury Discharge Goals Goal(s): Decrease discomfort, Improve function, Increase independence Activity Recommendations Activity Level: OOB In Chair, Assistance Required Therapies: Physical Therapy, Occupational Therapy Lifting Limitations: none Exercise/Sports Limitations: none Shower/Bathe: no limitations . Additional Information Patient informed of condition: Yes Advance Directives: Yes DNR: No Level of Care: Acute Rehab Communicable Disease: No Prognosis: Improving Oxygen at (LPM): no Pal Catheter: No Instructions / Follow-Up Instructions / Follow-Up Medications: - KEFLEX: 500mg twice a day for 9 more doses, next dose this evening - DIFLUCAN: 100mg daily for 5 more doses - PROBIOTIC: help prevent diarrhea while on antibiotics UTI with sepsis: initial UA did not show signs of UA when done in the ED, not sure if it was a good catch subsequent UA the next day showed >30WBC, urine culture grew Yeast, did not grow bacteria but patient was already on antibiotic prior to sending that culture had some intermittent hematuria consistent with cystitis no other signs of infection, CXR clear finish course of Keflex and Diflucan Urinary retention: no history of this per family, likely acute issue with the cystitis straight cathed for 1200cc on 10/21 and then 900cc on 10/22 discussed with urology, recommend PRN straight cath, TID, if unable to void can also perform random bladder scans during the day and straight cath if > 350cc if it does not resolve in next week then recommend follow up with Dr. Villavicencio in his office Acute kidney injury: likely combination of prerenal and post renal obstruction with urinary retention Cr peaked at 2.8, quickly returned to 0.9 over 36 hours once straight catheterizations performed Cr now stable FOLLOW UP - physician at [facility] - PCP one week after discharge from [facility] - Dr. Villavicencio if urinary retention does not resolve Current Hospital Diet Patient's current hospital diet: Regular Diet Discharge Diet Recommended Diet: Regular Diet Pending Studies Studies pending at discharge: no Physician Orders On Transfer Vital Signs: per protocol Additional Orders: straight cath TID PRN if unable to void or if post void residual >350cc, can check random bladder scans during the day if patient agitated or uncomfortable, she cannot tell you if she has to void due to dementia POLST Discussion: Not Applicable Medical Emergencies . Who to Call and When: Medical Emergencies: If at any time you feel your situation is an emergency, please call 911 immediately. . Non-Emergent Contact Non-Emergency issues call your: Primary Care Provider Call Non-Emergent contact if: you have a fever, you have any medication questions . . "Provider Documentation" section prepared by Jorge Montero. . Core Measure Problem Core Measures: None [place] Drug Monitoring Program Search Results: no issues identified
[2017-10-23] MEDS: CEPHALEXIN MONOHYDRATE 500 MG CAP PO SCH ×2 (08:21→21:37)
[2017-10-23] MEDS: PANTOprazole SOD 40 MG TAB PO SCH (08:22)
[2017-10-23] MEDS: GABAPENTIN 300 MG CAP PO SCH (08:22)
[2017-10-23] MEDS: ASPIRIN 81 MG ECTAB PO SCH (08:22)
[2017-10-23] MEDS: FLUCONAZOLE 100 MG TAB PO SCH (08:24)
--- NOTE | 2017-10-23 13:20 | Progress Note ---
Subjective Date of Service: October 23, 2017. Subjective Pt evaluation today including: conversation w/ patient, conversation w/ family , physical exam, lab review, review of inpatient medication list Pain: no pain PO Intake: adequate Voiding: requires PRN straight cath patient was walking around this AM, slightly agitated ended up needing a one on one, however, after this happened she was straight cathed for 900cc, much calmer discussed with CM, [facility] will reassess tomorro updated family at the bedside patient doing well, eating well, sitting up in chair, no distress urine culture with Cassidy gilbrata, only 10k Problem List Medical Problems: (1) Atrial fibrillation and flutter Status: Acute (2) Hyponatremia Status: Acute (3) Hypoxia Status: Acute (4) Sciatica associated with disorder of lumbar spine Status: Acute (5) SIRS (systemic inflammatory response syndrome) Status: Acute (6) Warfarin-induced coagulopathy Status: Acute Review of Systems All Other Systems: Reviewed and Negative Medications Current Inpatient Medications Medications (Trade) Dose Ordered Sig/Arnold Route Start Time Stop Time Status Last Admin Dose Admin Gabapentin (Neurontin Cap) 300 mg DAILY PO 10/19/17 09:00 11/18/17 08:59 10/23/17 08:22 300 MG Levothyroxine Sodium (Synthroid Tab) 50 mcg DAILYBB PO 10/19/17 06:00 11/18/17 06:59 10/23/17 08:20 50 MCG Pantoprazole Sodium (Protonix Tab) 40 mg DAILY PO 10/19/17 09:00 11/18/17 08:59 10/23/17 08:22 40 MG Acetaminophen (Tylenol Tab) 650 mg Q4H PRN PO 10/19/17 03:30 11/18/17 03:29 10/19/17 11:52 650 MG Ondansetron HCl (Zofran Inj) 4 mg Q6H PRN IV 10/19/17 03:30 11/18/17 03:29 Aspirin (Ecotrin Tab) 81 mg QAM PO 10/19/17 09:00 11/18/17 08:59 10/23/17 08:22 81 MG Hydralazine HCl (HydrALAZINE INJ) 20 mg Q8 PRN IV. 10/19/17 13:30 11/18/17 13:29 Olanzapine (Zyprexa Zydis Od Tab) mg QD PRN PO 10/19/17 14:45 11/18/17 14:44 10/19/17 18:18 5 MG Fluconazole (Diflucan Tab) 100 mg QAM PO 10/22/17 16:00 11/01/17 15:59 10/23/17 08:24 100 MG Cephalexin Monohydrate (Keflex Cap) 500 mg BID PO 10/22/17 19:00 11/01/17 18:59 10/23/17 08:21 500 MG Objective Vital Signs Date Time Temp Pulse Resp B/P (MAP) Pulse Ox O2 Delivery O2 Flow Rate FiO2 10/23/17 08:55 Room Air 10/23/17 06:50 36.5 95 15 163/90 (114) 97 Room Air 10/23/17 00:00 Room Air 10/22/17 23:28 36.9 87 20 126/84 (98) 97 Room Air 10/22/17 16:00 Room Air 10/22/17 15:06 36.9 89 20 150/90 (110) 96 164/83 (110) Physical Exam General Appearance: no apparent distress, + thin Eyes: normal inspection, EOMI, sclerae normal ENT: normal ENT inspection, hearing grossly normal, pharynx normal Neck: supple, no adenopathy, no JVD, trachea midline Respiratory/Chest: chest non-tender, lungs clear, normal breath sounds, no respiratory distress, no accessory muscle use Cardiovascular: regular rate, rhythm, no edema, no gallop, no JVD, no murmur Abdomen: normal bowel sounds, non tender, soft, no organomegaly Extremities: normal range of motion, non-tender, normal inspection, no pedal edema, no calf tenderness, pelvis stable Neurologic/Psychiatric: 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 II-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 tested, no motor/sensory deficits, alert, normal mood/affect, + disoriented Skin: normal color, warm/dry, no rash Assessment and Plan 87yo female admitted on October 18, 2017 with episode of nausea/vomiting/diarrhea now with +SIRS, source unclear initially, now appears to have UTI - Acute kidney injury Cr improved to 0.9 yesterday, acute injury resolved, no labs today likely combination of prerenal and urinary retention no nephrotoxic medications - Sepsis due to UTI - SIRS prior to arrival, leukocytosis of 12k, hypothermia, altered mental status has hematuria, repeat UA showed > 30WBC urine culture with < 1000 colonies but this was after antibiotics, eventually grew Yeast cassidy glibrata, 10k colonies, treat with Diflucan temperature improved, mental status back to baseline complete 7 days total for both antifungal and antibiotics - Hematuria, urinary retention: drained 1200cc from bladder in AM on 10/21, then 900cc on 10/22 frequent hematuria, could be cystitis? discussed with urology, recommend continuing PRN straight cath at rehab - Metabolic encephalopathy: resolved, likely due to cystis as well as urinary retention, Acute kidney injury - Dementia, mild: baseline confusion, lives alone with son across the street - EKG Changes upon admission , new diffuse TWI when compared to prior EKG from 2016 never had chest pressure, troponin negative x 3 sets continue aspirin - Hypothyroid, TSH elevated at 11 however T4 1.17 which is normal can follow up outpatient GERD, Atrial fibrillation, -Rate controlled, no anticoagulation at this time. Patient with CHADS 2 Vasc score of 3 Patient is full code plan for [facility] tomorrow, need to keep off one on one talked with RN, told her to straight cath more frequently to keep from getting agitated Continued [facility] stay due to: multiple IV medications needed Discharge planning: home
[2017-10-23 14:30] VITALS: BP 159/85; PULSE 91; TEMP 36.9; O2SAT 100
[2017-10-24 01:26] VITALS: BP 131/78; PULSE 74; O2SAT 98
[2017-10-24] MEDS: LEVOTHYROXINE 50 MCG TAB PO SCH (06:51)
[2017-10-24 07:47] VITALS: BP 155/81; PULSE 86; TEMP 36.6; O2SAT 98
[2017-10-24] MEDS: GABAPENTIN 300 MG CAP PO SCH (07:48)
[2017-10-24] MEDS: CEPHALEXIN MONOHYDRATE 500 MG CAP PO SCH (07:48)
[2017-10-24] MEDS: PANTOprazole SOD 40 MG TAB PO SCH (07:48)
[2017-10-24] MEDS: FLUCONAZOLE 100 MG TAB PO SCH (07:49)
[2017-10-24] MEDS: ASPIRIN 81 MG ECTAB PO SCH (07:49)
[2017-10-24 12:51] VITALS: BP 155/81; PULSE 86; TEMP 36.6; O2SAT 98
== END 2017-10-24 15:10 | DRG 871 ==
LOC: EDBD 00:35 → C.EDB 00:36 → C.2T 03:49 → ENRESERV 04:03 → C.MS2W 10-21 12:08
PROVIDERS: ADMIT Internal Medicine; ATTEND Internal Medicine
DX: A41.9 Sepsis, unspecified organism (principal); N39.0 Urinary tract infection, site not specified; G93.41 Metabolic encephalopathy; N17.9 Acute kidney failure, unspecified; B37.49 Other urogenital candidiasis; R19.7 Diarrhea, unspecified; R09.02 Hypoxemia; R68.0 Hypothermia, not associated with low 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 temperature; R33.9 Retention of urine, unspecified; R31.0 Gross hematuria; E03.9 Hypothyroidism, unspecified; K21.9 Gastro-esophageal reflux disease without esophagitis; I48.91 Unspecified atrial fibrillation; Z51.81 Encounter for therapeutic drug level monitoring; Z79.899 Other long term (current) drug therapy; Z86.73 Personal history of transient ischemic attack (TIA), and cerebral infarction without residual deficits; Z88.8 Allergy status to other drugs, medicaments and biological substances

== ENCOUNTER 2018-08-30 12:16 | Inpatient (IN) ==
[2018-08-30] MEDS ORDERED: SODIUM CHLORIDE 0.9% 1000ML 1,000 ML IV SCH (12:45)
[2018-08-30 12:47] LABS: Basophils # (auto) 0.06 K/uL (0-0.2); Basophils % (auto) 0.7 %; Eosinophils # (auto) 0.15 K/uL (0-0.5); Eosinophils % (auto) 1.6 %; Hematocrit (blood only) 43.4 % (37-47); Hemoglobin 14.3 g/dL (12.0-16.0); Immature Granulocytes # (auto) 0.02 K/uL (0.00-0.02); Immature Granulocytes % (auto) 0.2 %; Lymphocytes # (auto) 2.21 K/uL (1.2-3.4); Lymphocytes % (auto) 24.2 %; Mean Corpuscular Hgb Conc 32.9 g/dL (32-36); Mean Corpuscular Volume 91.8 fL (80-100); Mean Platelet Volume 9.5 fL (7.4-10.4); Monocytes # (auto) 0.82 K/uL (0.11-0.59); Neutrophils # (auto) 5.88 K/uL (1.4-6.5); Neutrophils % (auto) 64.3 %; Platelet Count 250 K/uL (130-400); RDW Coefficient of Variation 14.6 % (11.5-14.5); RDW Standard Deviation 49.1 fL (36.4-46.3); Red Blood Count 4.73 M/uL (4.2-5.4); White Blood Count 9.14 K/uL (4.8-10.8)
[2018-08-30 12:56] LABS: Partial Thromboplastin Ratio 0.9; Partial Thromboplastin Time 25.1 Seconds (21.0-31.0); Prothrombin Time 10.6 Seconds (9.0-12.0)
[2018-08-30 13:02] LABS: Alanine Aminotransferase 16 U/L (12-78); Albumin Level 3.7 gm/dl (3.4-5.0); Aspartate Aminotransferase 22 U/L (15-37); Blood Urea Nitrogen 16 mg/dl (7-18); Calcium 8.4 mg/dl (8.5-10.1); Carbon Dioxide 28 mmol/L (21-32); Chloride 106 mmol/L (98-107); Est GFR (African American) 68.5; Est GFR (Non-African American) 59.1; Glucose 101 mg/dl (70-99); Magnesium 2.1 mg/dl (1.8-2.4); Potassium 3.9 mmol/L (3.5-5.1); Sodium 140 mmol/L (136-145)
--- NOTE | 2018-08-30 13:06 | CT Scan Report ---
CT OF THE HEAD WITHOUT CONTRAST CLINICAL HISTORY: Stroke evaluation. Slurred speech. Facial droop. COMPARISON STUDY: Head CT April 22, 2016. CT DOSE: 537.48 mGy.cm TECHNIQUE: Helical axial images of the head were obtained without IV contrast. Automated exposure con trol was utilized for the study. A dose lowering technique was utilized adhering to the principles o f ALARA. FINDINGS: No acute intracranial hemorrhage, midline shift or mass effect is present. Metallic densiti es within the left frontal scalp are noted. Ventricular system is stable. Basilar cisterns are patent . There are no extra axial collections. 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 Extensive white matter hypodensity is noted. There are no findings to suggest acute dural sinus thrombosis or acute territorial infarct. The appearance of the brain is unchanged. There is no calvarial fracture. IMPRESSION: No acute intracranial findings. Electronically signed by: Paul Ray M.D. 08/30/2018 1:05 PM
[2018-08-30 13:07] LABS: Albumin Globulin Ratio 0.9 (0.9-2); Alkaline Phosphatase 97 U/L (45-117); Bilirubin,Total 0.9 mg/dl (0.2-1); Globulin 4.3 gm/dl (2.5-4.0); Troponin I < 0.015 ng/ml (0-0.045)
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
[2018-08-30] MEDS ORDERED: OPTIRAY 320 125ml IV PRN (13:50)
[2018-08-30] MEDS ORDERED: ASPIRIN CHEW 324 MG PO STA (14:16)
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
[2018-08-30] MEDS ORDERED: Heparin IV Standard *NO* Bolus IV ONE (15:04)
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
[2018-08-30] MEDS ORDERED: HALOPERIDOL LACTATE 5 MG/ML 1 ML VIAL ONE (17:04)
[2018-08-30] MEDS ORDERED: HALOPERIDOL LACTATE 5 MG/ML 1 ML VIAL IV STA (17:06)
[2018-08-30] MEDS ORDERED: METOPROLOL TARTRATE 1 MG/ML VIAL IV PRN (19:25)
[2018-08-30] MEDS ORDERED: PHARMACIST DISCHARGE MED REC CONSULT PRN (19:25)
[2018-08-30] MEDS ORDERED: Heparin IV Standard *NO* Bolus IV SCH (19:30)
[2018-08-30] MEDS: ASPIRIN 300 MG SUPP PR SCH (21:05)
[2018-08-30] MEDS: HEPARIN SODIUM/DEXTROSE 25,000 UNITS/500 ML BAG IV SCH (21:06)
[2018-08-31 03:09] LABS: Hematocrit (blood only) 38.7 % (37-47); Hemoglobin 12.8 g/dL (12.0-16.0); Mean Corpuscular Hgb Conc 33.1 g/dL (32-36); Mean Corpuscular Volume 90.2 fL (80-100); Mean Platelet Volume 9.4 fL (7.4-10.4); Platelet Count 215 K/uL (130-400); RDW Coefficient of Variation 14.7 % (11.5-14.5); RDW Standard Deviation 48.2 fL (36.4-46.3); Red Blood Count 4.29 M/uL (4.2-5.4); White Blood Count 7.01 K/uL (4.8-10.8)
[2018-08-31 03:33] LABS: Blood Urea Nitrogen 12 mg/dl (7-18); Calcium 8.2 mg/dl (8.5-10.1); Carbon Dioxide 26 mmol/L (21-32); Chloride 108 mmol/L (98-107); Creatinine Clr Calc Pharmacy 44.4 ml/min; Est GFR (African American) 89.9; Est GFR (Non-African American) 77.6; Glucose 99 mg/dl (70-99); Potassium 4.2 mmol/L (3.5-5.1); Sodium 140 mmol/L (136-145)
[2018-08-31 03:37] LABS: Partial Thromboplastin Time 54.2 Seconds (21.0-31.0)
[2018-08-31 03:38] LABS: Chol HDL Ratio 4; Cholesterol 202 mg/dl (0-200); HDL Cholesterol 54 mg/dl; LDL Cholesterol Calculated 132 mg/dl; Triglycerides 79 mg/dl (0-150); Troponin I < 0.015 ng/ml (0-0.045); VLDL Cholesterol 16 mg/dl
[2018-08-31] MEDS ORDERED: LEVOTHYROXINE SODIUM 50 MCG TABLET PO SCH (06:30)
[2018-08-31] MEDS: HALOPERIDOL LACTATE 5 MG/ML 1 ML VIAL IV PRN ×3 (06:55→20:44)
[2018-08-31] MEDS ORDERED: PANTOprazole 40 MG TAB PO SCH (09:00)
[2018-08-31] MEDS: ASPIRIN 300 MG SUPP PR SCH ×2 (09:20→12:30)
[2018-08-31] MEDS: ATORVASTATIN 40 MG TAB PO SCH (09:20)
[2018-08-31 09:46] LABS: Estimated Average Glucose 134 mg/dl; Hemoglobin A1C 6.3 % (4.5-5.6)
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
--- NOTE | 2018-08-31 13:42 | CT Scan Report ---
CT head/brain wo con CLINICAL HISTORY: CVA COMPARISON STUDY: No previous studies for comparison. TECHNIQUE: Axial CT of the brain is performed from the vertex to the skull base. IV contrast was not administered for this examination. A dose lowering technique was utilized adhering to the principles of ALARA. CT DOSE: 250.27 mGy.cm FINDINGS: No intra or extra-axial mass lesions are visualized. There is no CT evidence of acute cortical infarc tion. There is no evidence of midline shift. There is no acute hemorrhage. No calvarial fractures ar e visualized. There are patchy white matter hypodensities likely on a small vessel basis. There is no evidence of pathologic ventricular dilatation. There is no evidence of acute sinusitis IMPRESSION: No acute intracranial findings Electronically signed by: David Elam M.D. 08/31/2018 1:40 PM
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
[2018-08-31] MEDS: HEPARIN SODIUM/DEXTROSE 25,000 UNITS/500 ML BAG IV SCH (20:47)
[2018-09-01 07:21] LABS: Hematocrit (blood only) 40.4 % (37-47); Hemoglobin 13.4 g/dL (12.0-16.0); Mean Corpuscular Hgb Conc 33.2 g/dL (32-36); Mean Corpuscular Volume 89.8 fL (80-100); Mean Platelet Volume 9.5 fL (7.4-10.4); Platelet Count 213 K/uL (130-400); RDW Coefficient of Variation 14.6 % (11.5-14.5); RDW Standard Deviation 47.5 fL (36.4-46.3)
[2018-09-01 07:40] LABS: Partial Thromboplastin Ratio 2.8
[2018-09-01 07:41] LABS: Partial Thromboplastin Time 76.9 Seconds (21.0-31.0)
[2018-09-01 07:56] LABS: BUN Creatinine Ratio 17.9 (10-20); Calcium 8.6 mg/dl (8.5-10.1); Creatinine Clr Calc Pharmacy 49.5 ml/min; Est GFR (African American) 93.7; Est GFR (Non-African American) 80.8; Potassium 3.8 mmol/L (3.5-5.1)
[2018-09-01] MEDS: ATORVASTATIN 40 MG TAB PO SCH (08:16)
[2018-09-01] MEDS: ASPIRIN 300 MG SUPP PR SCH (08:16)
[2018-09-01] MEDS: LEVOTHYROXINE SODIUM 25 MCG in SYRINGE 0 ML IV SCH (09:26)
--- NOTE | 2018-09-01 09:50 | Neurology Progress Note ---
Date of Service September 01, 2018 Assessment & Plan (1) Cerebrovascular accident: This patient continues to exhibit a global aphasia and right facial droop consistent with a recent left hemispheric stroke. Unfortunately, patient cannot have an MRI completed due to metallic foreign body. Yesterday's follow-up CT of the head did not reveal an evolving infarct. However, embolic infarcts, especially if small may take a bit more time to become evident on follow-up CT. A global aphasia should localize to the left cerebral hemisphere. This patient's clinical presentation does not seem consistent with brainstem stroke or seizures. I would recommend a repeat CT of the head to be completed later today. Would proceed with anticoagulation given patient's history of atrial fibrillation. Speech and swallowing needs to clear patient. Subjective Follow-up for stroke The patient continues to exhibit a severe global aphasia and moderate right facial droop but without associated felicia paresis. She is unable to provide any details pertaining to her present illness or review of systems due to her severe global aphasia. Physical Exam Vital Signs (Past 24 Hours): Last Vital Signs Temp 36.5 C 09/01/18 07:43 Pulse 84 09/01/18 08:21 Resp 18 09/01/18 07:43 BP 125/66 09/01/18 07:43 Pulse Ox 97 09/01/18 07:43 Physical Exam: The patient is alert. Orientation cannot be assessed. Memory cannot be assessed. Attention normal. Patient is unable to name objects or repeat phrases. Language comprehension is significantly impaired. She does not follow commands. Visual melendez full to threat. Pupils equal round reactive to light. Eye movements intact. There is a right lower facial droop. Tongue and palate are midline. The patient does not cooperate for testing of strength. She does withdrawal both limbs equally to plantar stimulation. She does move both the left and right arm fairly equally with attempts at grabbing the bed sheets. She does not have an obvious hemiplegia or hemiparesis. No abnormal movements observed. Results & Data Diagnostic Findings Follow-up CT of the head completed yesterday negative for hemorrhage or acute process. There are patchy white matter hypodensities consistent with chronic small vessel disease. Images and report reviewed. There is no clear evidence of an evolving infarct within the left temporal lobe/cerebral hemisphere. (1) Cerebrovascular accident CVA mechanism: unspecified Qualified Code(s): I63.9 - Cerebral infarction, unspecified
[2018-09-01] MEDS: PANTOprazole 40 MG in SYRINGE 0 ML IV SCH (11:25)
--- NOTE | 2018-09-01 12:54 | CT Scan Report ---
CT head/brain wo con CT DOSE: 638.56 mGycm HISTORY: Mental status change global aphasia, left hemishpheric stroke TECHNIQUE: Multiaxial CT images of the head were performed without the use of intravenous contrast. A dose lowering technique was utilized adhering to the principles of ALARA. Comparison: 08/31/2018 Findings: Unchanged exam. Components rather significant chronic small vessel change. Small old left p eriventricular anterior basal ganglia infarct. No change in the prior study. No acute intracranial he morrhage. Impression: Unchanged exam. Considerable chronic small vessel change. No acute process. The above report was generated using voice recognition software. It may contain grammatical, syntax or spelling errors. Electronically signed by: Anton Mendoza M.D. 09/01/2018 12:53 PM
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
[2018-09-01 14:43] LABS: Partial Thromboplastin Ratio 2.2
[2018-09-01 14:46] LABS: Partial Thromboplastin Time 60.6 Seconds (21.0-31.0)
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
[2018-09-02] MEDS: HEPARIN SODIUM/DEXTROSE 25,000 UNITS/500 ML BAG IV SCH (00:40)
[2018-09-02 06:07] LABS: Partial Thromboplastin Ratio 1.9
[2018-09-02 06:08] LABS: Hematocrit (blood only) 42.7 % (37-47); Hemoglobin 14.2 g/dL (12.0-16.0); Mean Corpuscular Hgb Conc 33.3 g/dL (32-36); Mean Corpuscular Volume 90.1 fL (80-100); Mean Platelet Volume 10.1 fL (7.4-10.4); Platelet Count 244 K/uL (130-400); RDW Coefficient of Variation 14.2 % (11.5-14.5); RDW Standard Deviation 47.1 fL (36.4-46.3); Red Blood Count 4.74 M/uL (4.2-5.4); White Blood Count 12.91 K/uL (4.8-10.8)
[2018-09-02 06:19] LABS: BUN Creatinine Ratio 13.8 (10-20); Calcium 8.8 mg/dl (8.5-10.1); Creatinine Clr Calc Pharmacy 41.5 ml/min; Est GFR (Non-African American) 76.8; Potassium 3.7 mmol/L (3.5-5.1)
[2018-09-02 06:32] LABS: Partial Thromboplastin Time 50.3 Seconds (21.0-31.0)
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
[2018-09-02] MEDS: ASPIRIN 300 MG SUPP PR SCH (11:14)
[2018-09-02] MEDS: LEVOTHYROXINE SODIUM 25 MCG in SYRINGE 0 ML IV SCH (11:14)
[2018-09-02] MEDS: ATORVASTATIN 40 MG TAB PO SCH (11:14)
[2018-09-02] MEDS: PANTOprazole 40 MG in SYRINGE 0 ML IV SCH (12:06)
[2018-09-02] MEDS: METOPROLOL TARTRATE 25 MG TAB PO SCH (21:10)
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
[2018-09-03 07:15] LABS: Hematocrit (blood only) 38.7 % (37-47); Hemoglobin 12.8 g/dL (12.0-16.0); Mean Corpuscular Hgb Conc 33.1 g/dL (32-36); Mean Corpuscular Volume 89.6 fL (80-100); Mean Platelet Volume 9.7 fL (7.4-10.4); Platelet Count 209 K/uL (130-400); RDW Coefficient of Variation 14.4 % (11.5-14.5); RDW Standard Deviation 47.3 fL (36.4-46.3); Red Blood Count 4.32 M/uL (4.2-5.4); White Blood Count 8.95 K/uL (4.8-10.8)
[2018-09-03 07:37] LABS: Partial Thromboplastin Ratio 1.9
[2018-09-03 07:41] LABS: Partial Thromboplastin Time 50.9 Seconds (21.0-31.0)
[2018-09-03] MEDS: METOPROLOL TARTRATE 25 MG TAB PO SCH (08:13)
[2018-09-03] MEDS: PANTOprazole 40 MG in SYRINGE 0 ML IV SCH (08:13)
[2018-09-03] MEDS: ATORVASTATIN 40 MG TAB PO SCH (08:13)
[2018-09-03] MEDS: HEPARIN SODIUM/DEXTROSE 25,000 UNITS/500 ML BAG IV SCH ×2 (08:14→21:20)
--- NOTE | 2018-09-03 11:04 | Palliative Care Progress Note ---
Date of Service September 03, 2018 Assessment & Plan (1) Goals of care, counseling/discussion: -Patient is much improved today. Speech is improved. -Eating and tolerating diet well. -Patient was in agreement that she wanted to continue eating despite aspiration risk and would not want a feeding tube. -Plan will be for [facility] rehab. Use rehab time to decide whether or not she can go back to her home. -Patient states her son Alan and daughter Jennifer can make medical decisions for her if she is unable. -Patient's main focus is on comfort and staying out of the hospital. She wants to remain in her own home as long as possible. -Spoke with daughter Jennifer on the phone. She is happy with patient's progress. (2) Cerebrovascular accident: (3) New onset a-fib: Subjective Patient much improved today. Awake and alert. Denied pain/SOB. Speech improved. Able to eat/swallow. Constitutional: + weakness Ear, Nose, Mouth, Throat: no dysphagia Respiratory: no cough and no dyspnea Cardiovascular: no chest pain Gastrointestinal: no abdominal pain and no nausea Neurologic: + abnormal speech Psychiatric: no anxiety Physical Exam Vital Signs (Past 24 Hours): Last Vital Signs Temp 36.5 C 09/03/18 07:31 Pulse 102 H 09/03/18 07:31 Resp 16 09/03/18 07:31 BP 104/69 09/03/18 07:31 Pulse Ox 97 09/03/18 07:31 Constitutional: + thin; no acute distress ENMT: external ear and nose normal, oropharynx normal Neck: normal visual inspection Respiratory: normal respiratory effort, lungs clear to auscultation Cardiovascular: RRR, no murmur, no edema Gastrointestinal (Abdomen): Inspection/Auscultation: abdomen normal to inspection and normal bowel sounds Percussion/Palpation: abdomen soft Skin: no rashes, warm and dry Neurologic: moves all extremities and awake Speech / Cognition: + abnormal speech (garbled but much improved from yesterday) Cranial Nerves: + abnormal facial strength (right facial droop) Psychiatric: Orientation: alert (orientation difficult to asses due to extremely slurred speech) Supervising Physician Co-Signing Physician Notes Chart reviewed, pt seen and examined, no family at bedside Collaborated with ALBERT Rangel PE: NAD, sitting in chair eating pureed lunch HEENT: [place]OMI, [place] Resp: unlabored CV: RR, no edema Abd: not distended Neuro: dysarthria, dysphagia - some food pooling in mouth Agree with above note, assessment and plan - will cont to follow to assist with medical decision making. Plan is for rehab Time Spent Midlevel 35 minutes with >50% of time spent at bedside with patient and on phone with daughter discussing condition and GOC. (1) Cerebrovascular accident CVA mechanism: unspecified Qualified Code(s): I63.9 - Cerebral infarction, unspecified
--- NOTE | 2018-09-03 13:13 | Fluoroscopy Report ---
FL video swallow HISTORY: Assess for silent aspiration TECHNIQUE: Video fluoroscopic evaluation of swallowing was performed in the AP and lateral projection s by the speech pathology staff. The patient is fed nectar-thick and thin liquid barium, and barium p udding. FLUOROSCOPY TIME: 2 minutes. A cine loop submitted. COMPARISON STUDY: Video swallow 09/01/2018. FINDINGS: There are few episodes of incomplete epiglottic deflection. There are multiple episodes of aspiration identified during the examination. No cough was elicited. IMPRESSION: 1. Multiple episodes of silent aspiration identified throughout the examination. 2. Please see the speech pathologist report for detailed findings and recommendations. Electronically signed by: Suraj Uriarte M.D. 09/03/2018 1:12 PM
[2018-09-03] MEDS: ASPIRIN 300 MG SUPP PR SCH (13:37)
[2018-09-03] MEDS: LEVOTHYROXINE SODIUM 25 MCG in SYRINGE 0 ML IV SCH (13:38)
[2018-09-03] MEDS: METOPROLOL TARTRATE 50 MG TAB PO SCH (21:20)
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
[2018-09-04 07:22] LABS: Partial Thromboplastin Ratio 1.8
[2018-09-04] MEDS: METOPROLOL TARTRATE 50 MG TAB PO SCH (08:59)
[2018-09-04] MEDS: ATORVASTATIN 40 MG TAB PO SCH (08:59)
[2018-09-04] MEDS: LEVOTHYROXINE SODIUM 25 MCG in SYRINGE 0 ML IV SCH (08:59)
[2018-09-04] MEDS: ASPIRIN 300 MG SUPP PR SCH (09:21)
--- NOTE | 2018-09-04 12:02 | Palliative Care Progress Note ---
Date of Service September 04, 2018 Assessment & Plan (1) Goals of care, counseling/discussion: -Patient continues to improve today. Speech is improving. -Eating and tolerating diet well. -Plan will be for [facility] rehab. Use rehab time to decide whether or not she can go back to her home or if she'll need SNF. -Patient states her son Alan and daughter Jennifer can make medical decisions for her if she is unable. -Patient's main focus is on comfort and staying out of the hospital. She wants to remain in her own home as long as possible. (2) Cerebrovascular accident: (3) New onset a-fib: Subjective Patient still doing well today. No new complaints. Review of Systems Denies pain, SOB, headahce, N/V, or dysphagia. Does complain of weakness. Physical Exam Vital Signs (Past 24 Hours): Last Vital Signs Temp 36.6 C 09/04/18 07:54 Pulse 82 09/04/18 08:00 Resp 18 09/04/18 07:54 BP 135/88 09/04/18 07:54 Pulse Ox 96 09/04/18 07:54 Constitutional: + thin; no acute distress ENMT: external ear and nose normal, oropharynx normal Neck: normal visual inspection Respiratory: normal respiratory effort, lungs clear to auscultation Cardiovascular: RRR, no murmur, no edema Gastrointestinal (Abdomen): Inspection/Auscultation: abdomen normal to inspection and normal bowel sounds Percussion/Palpation: abdomen soft Skin: no rashes, warm and dry Neurologic: moves all extremities and awake Speech / Cognition: + abnormal speech (garbled but much improved from yesterday) Cranial Nerves: + abnormal facial strength (right facial droop) Psychiatric: Orientation: alert, oriented to person and oriented to place Time Spent Midlevel 25 minutes with >50% of time spent at bedside with patient discussing plan of care. (1) Cerebrovascular accident CVA mechanism: unspecified Qualified Code(s): I63.9 - Cerebral infarction, unspecified
[2018-09-04] MEDS ORDERED: STROKE PATIENT DISCHARGE STA (12:27)
[2018-09-04] MEDS ORDERED: RIVAROXABAN 15 MG TAB PO SCH (12:30)
[2018-09-04] MEDS ORDERED: GABAPENTIN 300 MG CAP PO SCH (21:00)
[2018-09-05] MEDS ORDERED: LEVOTHYROXINE SODIUM 50 MCG TABLET PO SCH (06:30)
[2018-09-05] MEDS ORDERED: PANTOprazole 40 MG TAB PO SCH (09:00)
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
== END 2018-09-04 17:36 | DRG 64 ==
LOC: ED 12:16 → SUATTDRO 17:34 → 2S 17:34